=== PATIENT | male | born 1960 | race Caucasian/White ===

== ENCOUNTER 2021-06-29 15:11 | Emergency (ER) | payer MEDICARE ==
[~2021-06-29] VITALS: Ht 175.3 cm; Wt 122.5 kg
[2021-06-29 15:15] VITALS: BP 135/88
[2021-06-29] MEDS ORDERED: CEPH500T PO (15:37)
[2021-06-29] MEDS ORDERED: SULF1TAB48 PO (15:37)
[2021-06-29] MEDS ORDERED: HYDR28.32 TP (15:41)
[2021-06-29] MEDS ORDERED: diphenhydrAMINE HCL 25 MG CAPSULE ONE (15:45)
[2021-06-29] MEDS: diphenhydrAMINE HCL 25 MG CAPSULE PO ONE (15:51)
--- NOTE | 2021-06-29 17:30 | NUR ---
Patient discharged to home in stable condition. Written and verbal after care instructions given. Patient verbalizes understanding of instruction.
== END 2021-06-29 15:45 | disposition home or self-care (01) ==
LOC: ER 15:11
DX: S90.862A Insect bite (nonvenomous), left foot, initial encounter (principal); L03.116 Cellulitis of left lower limb; Z79.899 Other long term (current) drug therapy; W57.XXXA Bitten or stung by nonvenomous insect and other nonvenomous arthropods, initial encounter; Y93.89 Activity, other specified; Y92.89 Other specified places as the place of occurrence of the external cause; Y99.8 Other external cause status
CPT/HCPCS: 99283; Q0163